=== PATIENT | male | born 1960 | race Caucasian/White ===

== ENCOUNTER 2017-04-11 21:26 | Emergency (ER) | payer OTHER ==
[~2017-04-11] VITALS: Ht 185.4 cm; Wt 90.7 kg
[2017-04-11 22:24] LABS: ABSOLUTE BASOPHIL COUNT 0.1 /CUMM (0.0-0.2); ABSOLUTE EOSINOPHIL COUNT 0.3 /CUMM (0.0-0.7); ABSOLUTE LYMPH COUNT 3.4 /CUMM (1.2-3.4); ABSOLUTE MONOCYTE COUNT 0.4 /CUMM (0.10-0.60); EOSINOPHIL % 4.4 % (0-5); GRANULOCYTE % 42.3 % (42.2-75.2); HEMATOCRIT 42.3 % (42-52); MEAN CORPUSCULAR HGB 33.4 PG (27.0-31.0); MEAN CORPUSCULAR HGB CONC 34.6 G/DL (33.0-37.0); MEAN CORPUSCULAR VOLUME 96.4 FL (80.0-94.0); MEAN PLATELET VOLUME 6.5 FL (7.4-10.4); PLATELET COUNT 301 /CUMM (130-400); RBC DISTRIBUTION WIDTH 13.6 % (11.5-14.5); RED BLOOD CELL CT 4.39 /CUMM (4.70-6.10); WHITE BLOOD CELL COUNT 7.2 /CUMM (4.8-10.8)
--- NOTE | 2017-04-11 23:05 | ED GENERAL ADULT ---
History of Present Illness General Chief Complaint: ETOH/Drug Related Complaint Stated Complaint: PT IS HERE FOR DETOX FROM ALOCHOL Source: patient, old records Vital Signs & Intake/Output Vital Signs & Intake/Output Vital Signs Date Time Temp Pulse Resp B/P B/P Pulse O2 O2 Flow FiO2 Mean Ox Delivery Rate 04/12 0806 98.1 79 18 142/80 97 Room Air 04/12 0805 98.1 79 18 142/80 04/12 0623 97.8 76 16 142/90 96 Room Air 04/12 0418 97.9 71 16 128/84 96 Room Air 04/12 0231 97.8 72 20 120/88 96 Room Air 04/12 0041 96.5 88 18 100 Room Air 04/11 2205 96.9 82 18 125/83 96 Room Air ED Intake and Output 04/12 0000 04/11 1200 Intake Total Output Total Balance Patient 200 lb Weight Weight Reported by Patient Measurement Method Triage Note: PER PT DETOXING FROM ETOH LAST DRINK 1999, DENIES DRUG USE DENIES SI/HI DENIES SZ WITH WITHDRAWALS Triage Nurses Notes Reviewed? yes HPI: 56M no significant PMH presenting with detox for alcohol, with plan to go to [facility] tomorrow. Last drink earlier today. Denies agitation or withdrawal symptoms at this time. Has withdrawn before but no seizure history. No complaints at this time. (Janett ANDERSON,Kane) General Exam Limitations: no limitations (Emil ANDERSON,Huy Ribera) Allergies Coded Allergies: No Known Allergies (04/12/17) (Manuel Palmer DO) Past History Travel History Traveled to [place] past 21 day No Medical History Any Pertinent Medical History? see below for history Neurological: NONE EENT: NONE Cardiovascular: NONE Respiratory: NONE Gastrointestinal: NONE Hepatic: NONE Renal: NONE Musculoskeletal: NONE Psychiatric: NONE Endocrine: NONE Surgical History Surgical History: non-contributory Psychosocial History What is your primary language Greek Tobacco Use: Current Daily Use Daily Tobacco Use Amount/Type: => 5 Cigarettes daily ETOH Use: heavy use Family History Hx Contributory? No (Kane Rowland MD) Review of Systems Review of Systems Constitutional: Reports: no symptoms. EENTM: Reports: no symptoms. Respiratory: Reports: no symptoms. Cardiovascular: Reports: no symptoms. GI: Reports: no symptoms. Genitourinary: Reports: no symptoms. Musculoskeletal: Reports: no symptoms. Skin: Reports: no symptoms. Neurological/Psychological: Reports: no symptoms. Hematologic/Endocrine: Reports: no symptoms. Immunologic/Allergic: Reports: no symptoms. All Other Systems: Reviewed and Negative (Kane Rowland MD) Physical Exam Physical Exam General Appearance: well developed/nourished, no apparent distress Head: atraumatic, normal appearance Eyes: Bilateral: normal appearance. Ears, Nose, Throat: normal pharynx, normal ENT inspection, hearing grossly normal Neck: normal inspection, supple, full range of motion Respiratory: normal breath sounds, chest non-tender, no respiratory distress Cardiovascular: regular rate/rhythm Gastrointestinal: soft, non-tender Back: normal inspection, normal range of motion Extremities: normal inspection, normal range of motion Neurologic/Psych: awake, alert, oriented x 3, normal mood/affect Skin: intact, normal color (Kane Rowland MD) Core Measures ACS in differential dx? No CVA/TIA Diagnosis: No Sepsis Present: No Sepsis Focused Exam Completed? No (Emil ANDERSON,Huy Ribera) Progress Differential Diagnoses I considered the following diagnoses in my evaluation of the patient: alcohol or drug withdrawal, seizure, delirium Plan of Care: Orders Procedure Date/time Status ETHANOL 04/11 2214 Complete URINE DRUG SCREEN FOR ER ONLY 04/11 2209 Complete TROPONIN LEVEL 04/11 2201 Complete LIPASE 04/11 2201 Complete HEPATIC FUNCTION PANEL 04/11 2201 Complete CBC WITHOUT DIFFERENTIAL 04/11 2201 Complete BASIC METABOLIC PANEL 04/11 2201 Complete AMYLASE 04/11 2201 Complete EKG 04/11 2201 Active Current Medications Sig/Mark Start time Last Medication Dose Stop Time Status Admin Gabapentin 300 MG Q8 04/12 0600 UNVr 04/12 (Neurontin) 0648 Laboratory Tests 04/11/17 2235: Urine Opiates Screen < 100.00, Methadone Screen < 40, Barbiturate Screen < 60, Ur Phencyclidine Scrn < 6.00, Amphetamines Screen < 100, U Benzodiazepines Scrn < 85, Urine Cocaine Screen < 50, Urine Cannabis Screen < 5.00 04/11/172214: Anion Gap 16, Estimated GFR > 60, BUN/Creatinine Ratio 26.3 H, Glucose 91, Calcium 9.3, Total Bilirubin 0.3, Direct Bilirubin 0.2, AST 30, ALT 27, Alkaline Phosphatase 61, Troponin I < 0.01, Total Protein 7.4, Albumin 4.6, Amylase 138 H, Lipase 753 H, CBC w Diff NO MAN DIFF REQ, RBC 4.39 L, MCV 96.4 H, MCH 33.4 H, MCHC 34.6, RDW 13.6, MPV 6.5 L, Gran % 42.3, Lymphocytes % 47.1, Monocytes % 5.2, Eosinophils % 4.4, Basophils % 1.0, Absolute Granulocytes 3.0, Absolute Lymphocytes 3.4, Absolute Monocytes 0.4, Absolute Eosinophils 0.3, Absolute Basophils 0.1, Serum Alcohol 325.0 04/11/17 2210: Serum Alcohol Cancelled Initial ED EKG: none (Janett ANDERSON,Kane) Differential Diagnoses I considered the following diagnoses in my evaluation of the patient: alcoholism Hand-Off Endorsed To: Manuel Palmer DO Endorsed Time: 0700 (Emil ANDERSON,Huy Ribera) Departure Departure Disposition: HOME OR SELF CARE Condition: Stable Clinical Impression Primary Impression: Alcohol withdrawal Referrals: Unknown (PCP/Family) Departure Forms: Customer Survey General Discharge Information (Janett ANDERSON,Kane) Departure Comments [facility]... (Emil ANDERSON,Huy Ribera) Departure Comments : 04/12/17 8 AM the patient was signed out to me by Dr. Stein at 7 AM. He is awake alert oriented 3 mild tremors. He is medically cleared for high watch. CIWA score and alcohol level are being repeated. Patient CIWA scores 6. He is awake alert oriented 3. Alcohol level was 0.95 he's being discharged to [facility]. (Manuel Palmer DO) Critical Care Note Critical Care Note Critical Care Time: non-applicable (Emil ANDERSON,Huy Ribera)
[2017-04-12 08:06] VITALS: BP 142/80
== END 2017-04-12 08:27 ==
LOC: ERH 21:26
PROVIDERS: Pediatrics
DX: F10.239 Alcohol dependence with withdrawal, unspecified (principal)
CPT/HCPCS: 80307; G0480